=== PATIENT | male | born 1995 | race African-American/Black ===

== ENCOUNTER 2017-04-19 06:40 | Emergency (ER) | payer OTHER ==
[~2017-04-19] VITALS: Ht 175.3 cm; Wt 63.6 kg
[2017-04-19] MEDS ORDERED: DERMABOND TOPICAL SKIN ADHESIVE TOP ONE (07:00)
--- NOTE | 2017-04-19 07:40 | REPUSA ---
CLINICAL HISTORY: Neck pain. TECHNIQUE: Multiple axial images were obtained through the cervical spine. Images were also reconstru cted in coronal and sagittal planes. The study was performed without IV contrast. COMMENTS: There is no fracture or spondylolisthesis visualized. The paraspinal soft tissues are unremarkable. T here are no lytic or blastic lesions. Straightening of cervical lordosis is seen, suggesting muscular spasm. There is evidence of minimal m ultilevel disk disease, demonstrated by minimal osteophytosis and endplate sclerosis. Findings are mo re prominent at C5-C6 level. No significant disk herniation is noted at any level. Canal and foramina remain patent. IMPRESSION: 1. No fracture or spondylolisthesis. 2. Straightening of cervical lordosis is seen, suggesting muscular spasm. 3. Minimal multilevel spondylosis. Thank you for your kind referral of this patient.
[2017-04-19 08:01] VITALS: BP 111/59
== END 2017-04-19 08:02 | disposition home or self-care (01) ==
LOC: EDBD 06:40 → M ED 06:40
DX: S01.81XA Laceration without foreign body of other part of head, initial encounter (principal); S00.93XA Contusion of unspecified part of head, initial encounter; M54.2 Cervicalgia; W01.198A Fall on same level from slipping, tripping and stumbling with subsequent striking against other object, initial encounter; Y92.099 Unspecified place in other non-institutional residence as the place of occurrence of the external cause; Y93.01 Activity, walking, marching and hiking; Y99.9 Unspecified external cause status

== ENCOUNTER 2017-04-23 02:41 | Emergency (ER) | payer OTHER ==
[~2017-04-23] VITALS: Ht 175.3 cm; Wt 67.3 kg
[2017-04-23 02:42] VITALS: BP 122/58
== END 2017-04-23 06:33 | disposition left against medical advice (07) ==
LOC: M ED 02:41
DX: Z53.21 Procedure and treatment not carried out due to patient leaving prior to being seen by health care provider (principal)

== ENCOUNTER 2017-11-01 22:35 | Emergency (ER) | payer OTHER | END 2017-11-02 01:13 | disposition home or self-care (01) | LOC: M ED 22:35 | DX: L02.01 Cutaneous abscess of face (principal) | CPT/HCPCS: 99281 ==